=== PATIENT | female | born 1980 | race Caucasian/White ===

== ENCOUNTER 2017-04-04 08:25 | Emergency (ER) | payer MEDICAID ==
[~2017-04-04] VITALS: Wt 82.0 kg
[~2017-04-04 08:25] MED LIST: FER325 PO; PREN-46 PO
[2017-04-04] MEDS ORDERED: IBUP-1542 PO (08:46)
[2017-04-04] MEDS ORDERED: CIPR500T4 PO (08:46)
[2017-04-04] MEDS ORDERED: SULF1TAB31 PO (08:47)
--- NOTE | 2017-04-04 08:58 | ERD ---
ER Documentation Chief Complaint Date/Time DATE: 04/04/17 TIME: 08:51 Chief Complaint left ear pain HPI 36-year-old female complaining of left ear pain and inflammation 1 day. Patient stated the she is not hearing as well. Denies fever or chills. Denies trauma to the year. Denies swimming. Denies history of diabetes or other medical history. ROS All systems reviewed and are negative except as per history of present illness. Medications Home Meds Active Scripts Sulfamethoxazole/Trimethoprim* (Bactrim Ds* Tablet) 1 Each Tablet, 1 TAB PO BID , #14 TAB Prov:HORTENCIA URENA. FILM PROJECTOR OPERATOR 04/04/17 Ibuprofen* (Motrin*) 600 Mg Tab, 600 MG PO Q6H Y for PAIN AND OR ELEVATED TEMP, #30 TAB Prov:HORTENCIA URENA. FILM PROJECTOR OPERATOR 04/04/17 Ciprofloxacin Hcl* (Ciprofloxacin Hcl*) 500 Mg Tablet, 500 MG PO BID for 10 Days , TAB Prov:HORTENCIA URENA. FILM PROJECTOR OPERATOR 04/04/17 Reported Medications Ferrous Sulfate* (Ferrous Sulfate*) 325 Mg Tabec, 325 MG PO DAILY, TAB 01/17/15 Vit #108/Iron/Fa ( ONE TABLET) 1 Each Tablet, 1 EACH PO AM 01/17/15 Allergies Allergies: Coded Allergies: Penicillins (Verified Allergy, Intermediate, HIVES, 04/04/17) PMhx/Soc History of Surgery: Yes (hysterrectomy) Anesthesia Reaction: No Hx Neurological Disorder: No Hx Respiratory Disorders: No Hx Cardiac Disorders: No Hx Psychiatric Problems: No Hx Miscellaneous Medical Probl: No Hx Alcohol Use: No Hx Substance Use: No Hx Tobacco Use: No Smoking Status: Never smoker Physical Exam Vitals Vital Signs Date Time Temp Pulse Resp B/P Pulse Ox O2 Delivery O2 Flow Rate FiO2 04/04/17 08:27 98.0 71 18 132/75 99 Physical Exam General: Well-developed, well-nourished, conscious and coherent, in no distress Skin: Warm and dry without rash, good texture and turgor Head: Normocephalic without evidence of trauma Eyes: Sclera and conjunctivae normal; pupils equal, round, and reactive to light; extraocular movements are intact Ears: Canals are patent. Tympanic membranes are clear. Superior aspect of the left auricle and preauricular area erythematous, swollen, tender to palpation. Mastoid tenderness. Nose/Face: Without rhinorrhea Neck: Supple without meningismus or adenopathy. Carotids are equal. Trachea midline. No bruits or JVD Chest: Normal AP diameter. Good expansion without retractions. Nontender. Lungs are clear to auscultate bilaterally with good tidal volume Heart: Regular rate and rhythm. No murmur, rub, or gallops heard Extremities: Full range of motion. Good strength bilaterally. No clubbing, cyanosis, or edema. Peripheral pulses are intact. Sensation intact Neuro: Alert and oriented 4, GCS 15. Cranial nerves grossly intact. Motor and sensory exams nonfocal. Moves all extremities. Speech clear. Gait normal Results 24 hrs Current Medications Medications (Trade) Dose Ordered Sig/Macario Route PRN Reason Start Time Stop Time Status Last Admin Dose Admin Ibuprofen (Motrin) 600 mg ONCE ONCE PO 04/04/17 09:00 04/04/17 09:01 04/04/17 08:49 Procedures/MDM Well-appearing 36-year-old female presented to ED with cellulitis to the left ear. There is no sign of abscess at this time. I doubt mastoiditis. Patient is stable for outpatient management. I will prescribe Cipro and Bactrim DS. Ibuprofen given to the patient in the ED for pain relief. Patient appears well, stable for discharge and outpatient management. Medical decision making shared with patient and family. Education provided to patient and family. Patient and family expressed understanding of the plan. Medications on discharge: Ibuprofen, Cipro, Bactrim DS. Follow-up: Return to eating 2 days for recheck. The case was reviewed and discussed with Dr. Bauer, who agrees with the plan of care including labs, treatment, and advanced imaging as appropriate. Disclaimer: Inadvertent spelling and grammatical errors are likely due to EHR/ dictation software use and do not reflect on the overall quality of patient care. Also, please note that the electronic time recorded on this note does not necessarily reflect the actual time of the patient encounter. Departure Diagnosis: Primary Impression: Cellulitis of external ear Laterality: left Qualified Code: H60.12 - Cellulitis of left external ear Condition: Stable Patient Instructions: Cellulitis Ref[facility] Usted se robert hecho un examen mdico de control que le indica que no est en filemon condicin que requiera tratamiento urgente en el Departamento de Emergencia. Un estudio ms profundo y el tratamiento de coleman condicin pueden esperar sin ningn riesgo hasta que usted sea atendida/o en el consultorio de coleman mdico o filemon cl ciara. Es responsabilidad suya arreglar filemon sally para el seguimiento del mattie. MANEJO DE CONDICIONES NO URGENTES EN EL FUTURO 1) Si usted tiene un mdico de atencin primaria: Usted debera llamar a coleman mdico de atencin primaria antes de venir al departamento de emergencia. Despus de las horas de consultorio, coleman doctor o coleman asociado/a est disponible por telfono. El mdico o enfermero de becyk en el servicio telefnico puede asesorarle por deloris medio para atender el problema, o mattie contrario se puede programar filemon sally. 2) Si usted no tiene un mdico de atencin primaria: Llame al mdico o clnica de referencia que aparece abajo celia las horas de consultorio para hacer filemon sally para que le vean. CLINICAS: [facility] [phone] [facility] [phone] [place] [phone] [place] [id number] [phone] [place] [id number] [phone] [phone] [address] Additional Instructions: Regrese a estas instalaciones dentro de DOS DICKEY para un examen de seguimiento.Regrese antes si coleman condicin se empeora. HORTENCIA URENA NP Apr 04, 2017 08:58
[2017-04-04] MEDS ORDERED: IBUPROFEN 600 MG TAB PO ONE (09:00)
== END 2017-04-04 08:54 | disposition home or self-care (01) ==
LOC: FTE 08:25
DX: H60.12 Cellulitis of left external ear (principal)
CPT/HCPCS: Z7502; Z7610; 99284

== ENCOUNTER 2017-04-05 12:29 | Inpatient (IN) | payer MEDICAID ==
[~2017-04-05] VITALS: Ht 170.2 cm; Wt 80.7 kg
[~2017-04-05 12:29] MED LIST changes: +CIPR500T4 PO; +IBUP-1542 PO; +SULF1TAB31 PO
[2017-04-05] MEDS ORDERED: SOD CHLORIDE 0.9% 1,000 ML IV STA (15:28)
[2017-04-05] MEDS ORDERED: CLINDAMYCIN 600 MG/D5W (PMX) 50 ML IVPB SCH (15:30)
[2017-04-05 16:03] LABS: BASOPHIL # 0.1 10^3/ul (0.0-0.1); BASOPHILS % 0.3 % (0.0-2.0); EOSINOPHILS # 0.1 10^3/ul (0.0-0.5); EOSINOPHILS % 0.6 % (0.0-7.0); HEMATOCRIT 42.6 % (37.0-47.0); HEMOGLOBIN 13.2 g/dl (12.0-16.0); LYMPHOCYTES # 2.4 10^3/ul (0.8-2.9); LYMPHOCYTES % 13.7 % (15.0-51.0); MEAN CORPUSCULAR HEMOGLOBIN 27.8 pg (29.0-33.0); MEAN CORPUSCULAR VOLUME 89.9 fl (82.0-101.0); MONOCYTES % 5.8 % (0.0-11.0); NEUTROPHIL # 13.6 10^3/ul (1.6-7.5); NEUTROPHILS % 79.1 % (39.0-77.0); PLATELET COUNT 315 10^3/UL (140-415); RED BLOOD COUNT 4.74 10^6/ul (4.20-5.40); RED CELL DISTRIBUTION WIDTH 12.9 % (11.5-14.5); WHITE BLOOD COUNT 17.1 10^3/ul (4.8-10.8)
[2017-04-05 16:15] LABS: ADD UMIC YES; UR ASCORBIC ACID NEGATIVE (NEGATIVE); UR BACTERIA FEW /HPF (NONE SEEN); UR BILIRUBIN (Dip) NEGATIVE (NEGATIVE); UR BLOOD (Dip) NEGATIVE (NEGATIVE); UR BUDDING YEAST FEW /HPF (NONE SEEN); UR CLARITY SLIGHTLY CLOUDY (CLEAR); UR COLOR YELLOW (YELLOW); UR GLUCOSE (Dip) NEGATIVE (NEGATIVE); UR KETONES (Dip) NEGATIVE (NEGATIVE); UR LEUKOCYTE ESTERASE (Dip) 3+ Leu/ul (NEGATIVE); UR NITRITE (Dip) NEGATIVE (NEGATIVE); UR RBC 11 /HPF (0-5); UR SPECIFIC GRAVITY (Dip) 1.014 (1.003-1.030); UR SQUAMOUS EPITHELIAL CELL FEW /HPF (FEW); UR TOTAL PROTEIN (Dip) NEGATIVE (NEGATIVE); UR UROBILINOGEN (Dip) NEGATIVE (NEGATIVE)
[2017-04-05 16:20] LABS: ALBUMIN 4.5 g/dl (3.3-4.9); ALBUMIN/GLOBULIN RATIO 1.15; BILIRUBIN,INDIRECT 0.1 mg/dl (0-1.1); BILIRUBIN,TOTAL 0.1 mg/dl (0.2-1.3); CALCIUM 8.9 mg/dl (8.4-10.2); CREATININE 0.77 mg/dl (0.44-1.00); POTASSIUM 3.9 mmol/L (3.5-5.1); TOTAL PROTEIN 8.4 g/dl (6.1-8.1)
[2017-04-05] MEDS ORDERED: ONDANSETRON 4 MG INJ IV STA ×2 (16:21→18:07)
[2017-04-05] MEDS ORDERED: morphine 4 MG/ML VIAL IV STA ×2 (16:21→18:07)
[2017-04-05] MEDS ORDERED: SOD CHLORIDE 0.9% 100 ML ONE (16:41)
[2017-04-05] MEDS ORDERED: IOHEXOL 300MG/ML 150 ML BTL ONE (16:41)
--- NOTE | 2017-04-05 17:17 | RADRPT ---
PROCEDURE: CT soft tissue neck with contrast CLINICAL INDICATION: Left ear pain, redness TECHNIQUE: A CT of the soft tissues of the neck with contrast was performed on a multidetector CT s Cumed, with multiplanar reformats. 85 cc Omnipaque-300 intravenous contrast were administered. O ne or more of the following dose reduction techniques were used: Automated exposure control, adjustm ent in mA and / or kV according to patient size, use of iterative reconstructive technique. CTDI vo l = 10 mGy and DLP = 254 mGy-cm. COMPARISON: None available FINDINGS: Soft tissue swelling is identified in the left periauricular region with subcutaneous stranding whic h extends inferiorly over the lateral aspect of the left parotid gland - face. Imaged inferior aspe ct of the left pinna also appear swollen. Noted are small reactive left parotid nodes. No focal rim enhancing fluid collection is identified to suggest abscess. The pharynx, and larynx are unremarkabl e. The thyroid gland and rest of visceral space structures are unremarkable. The parapharyngeal an d retropharyngeal spaces are clear. The carotid spaces are unremarkable. There is a small, 2 -3 mm calculus in the right submandibular gland without associated dilated ducts seen. The imaged mastica tor spaces are symmetric. Imaged skull base appears intact. The perivertebral and posterior cervic al spaces are unremarkable. The imaged orbits are within normal limits. Oral cavity structures are unremarkable. Moderate right maxillary sinus mucous retention cyst is noted. Caries and periapical lucency at the right maxillary 1st premolar noted. Lung apices are clear.. IMPRESSION: 1. Findings compatible with cellulitis involving the left pinna, and adjacent periauricular region/ face. No abscess identified. 2. Small right submandibular gland calculus. 3. Dental disease described above. RPTAT: VV .Bryan Kinney MD, Date Time Electronically viewed and signed by .Bryan Kinney MD, MD on 04/05/2017 17:17 .O/
--- NOTE | 2017-04-05 17:56 | ERA ---
ER Documentation Chief Complaint Date/Time DATE: 04/05/17 TIME: 17:56 Chief Complaint l. ear pain and swelling HPI 36y/o female, presents to the ED c/o a four day h/o increasing pain and swelling to left ear. Symptoms began as a small spot on her ear. Seen in the ED on 04/04, treated with Cipro and Bactrim but symptoms worsening and spreading to left face. Denies headache, eye pain or visual changes. No odynophagia or dysphagia. No neck pain or swelling. No shortness of breath. Subjective fevers and chills. ROS All systems reviewed and are negative except as per history of present illness. Medications Home Meds Active Scripts Sulfamethoxazole/Trimethoprim* (Bactrim Ds* Tablet) 1 Each Tablet, 1 TAB PO BID , #14 TAB Prov:HORTENCIA URENA. BLADE BONER 04/04/17 Ciprofloxacin Hcl* (Ciprofloxacin Hcl*) 500 Mg Tablet, 500 MG PO BID for 10 Days , TAB Prov:HORTENCIA URENA. BLADE BONER 04/04/17 Discontinued Reported Medications Ferrous Sulfate* (Ferrous Sulfate*) 325 Mg Tabec, 325 MG PO DAILY, TAB 01/17/15 Vit #108/Iron/Fa ( ONE TABLET) 1 Each Tablet, 1 EACH PO AM 01/17/15 Discontinued Scripts Ibuprofen* (Motrin*) 600 Mg Tab, 600 MG PO Q6H Y for PAIN AND OR ELEVATED TEMP, #30 TAB Prov:HORTENCIA URENA. BLADE BONER 04/04/17 Allergies Allergies: Coded Allergies: Penicillins (Verified Allergy, Intermediate, HIVES, 04/05/17) PMhx/Soc Reviewed in chart. As per HPI. History of Surgery: Yes (hysterrectomy) Anesthesia Reaction: No Hx Neurological Disorder: No Hx Respiratory Disorders: No Hx Cardiac Disorders: No Hx Psychiatric Problems: No Hx Miscellaneous Medical Probl: No Hx Alcohol Use: No Hx Substance Use: No Hx Tobacco Use: No FmHx No diabetes Physical Exam Vitals Vital Signs Date Time Temp Pulse Resp B/P Pulse Ox O2 Delivery O2 Flow Rate FiO2 04/05/17 18:49 98.8 79 20 122/72 100 Room Air 04/05/17 12:42 99.4 74 20 126/77 100 Physical Exam Const: Alert, Mild distress Head: Atraumatic Eyes: Normal Conjunctiva. No periorbital swelling ENT: Erythema, swelling, tenderness and calor of the left pinna/helix extending to left face. No fluctuance or crepitus. No trismus. Pharynx clear. Neck: Full range of motion. No lymphadenopathy or tenderness. Resp: Clear to auscultation bilaterally Cardio: Regular rate and rhythm, no murmurs Abd: Soft, non tender, non distended. Normal bowel sounds Skin: No petechiae or rashes Back: No midline or flank tenderness Ext: No cyanosis, or edema Neur: Awake and alert Psych: Normal Mood and Affect Result Diagram: 04/09/1751604/09/17516 Results 24 hrs Laboratory Tests Test 04/05/17 15:48 White Blood Count 17.110^3/ul Red Blood Count 4.7410^6/ul Hemoglobin 13.2g/dl Hematocrit 42.6% Mean Corpuscular Volume 89.9fl Mean Corpuscular Hemoglobin 27.8pg Mean Corpuscular Hemoglobin Concent 31.0g/dl Red Cell Distribution Width 12.9% Platelet Count 61589^3/UL Mean Platelet Volume 9.0fl Neutrophils % 79.1% Lymphocytes % 13.7% Monocytes % 5.8% Eosinophils % 0.6% Basophils % 0.3% Nucleated Red Blood Cells % 0.0/100WBC Neutrophils # 13.610^3/ul Lymphocytes # 2.410^3/ul Monocytes # 1.010^3/ul Eosinophils # 0.110^3/ul Basophils # 0.110^3/ul Nucleated Red Blood Cells # 0.010^3/ul Urine Color YELLOW Urine Clarity SLIGHTLY CLOUDY Urine pH 5.0 Urine Specific [place] 1.014 Urine Ketones NEGATIVEmg/dL Urine Nitrite NEGATIVEmg/dL Urine Bilirubin NEGATIVEmg/dL Urine Urobilinogen NEGATIVEmg/dL Urine Leukocyte Esterase 3+Fatimah/ul Urine Microscopic RBC 11/HPF Urine Microscopic WBC 56/HPF Urine Squamous Epithelial Cells FEW/HPF Urine Bacteria FEW/HPF Urine Yeast (Budding) FEW/HPF Urine Hemoglobin NEGATIVEmg/dL Urine Glucose NEGATIVEmg/dL Urine Total Protein NEGATIVEmg/dl Sodium Level 140mmol/L Potassium Level 3.9mmol/L Chloride Level 104mmol/L Carbon Dioxide Level 25mmol/L Anion Gap 15 Blood Urea Nitrogen 10mg/dl Creatinine 0.77mg/dl Glucose Level 118mg/dl Calcium Level 8.9mg/dl Total Bilirubin 0.1mg/dl Direct Bilirubin 0.00mg/dl Indirect Bilirubin 0.1mg/dl Aspartate Amino Transf (AST/SGOT) 23IU/L Alanine Aminotransferase (ALT/SGPT) 27IU/L Alkaline Phosphatase 82IU/L Total Protein 8.4g/dl Albumin 4.5g/dl Globulin 3.90g/dl Albumin/Globulin Ratio 1.15 Lipase 43U/L Current Medications Medications (Trade) Dose Ordered Sig/Macario Route PRN Reason Start Time Stop Time Status Last Admin Dose Admin Sodium Chloride 1,000 ml @ 1,000 mls/hr Q1H STAT IV 04/05/17 15:28 04/05/17 16:27 DC 04/05/17 15:43 Clindamycin HCl/ Dextrose (Cleocin 600 Mg/ D5W (Pmx)) 50 ml @ 50 mls/hr ONCE IVPB 04/05/17 15:30 04/05/17 16:29 DC 04/05/17 15:57 Morphine Sulfate (morphine) 4 mg ONCE STAT IV 04/05/17 16:21 04/05/17 16:22 DC 04/05/17 16:25 Ondansetron HCl (Zofran Inj) 4 mg ONCE STAT IV 04/05/17 16:21 04/05/17 16:22 DC 04/05/17 16:26 IV Flush 10 ml 10 ml STK-MED ONCE .ROUTE 04/05/17 16:41 04/05/17 16:42 DC 04/05/17 16:57 Sodium Chloride (NS) 100 ml @ ud STK-MED ONCE .ROUTE 04/05/17 16:41 04/05/17 16:42 DC 04/05/17 16:58 Iohexol 150 ml 150 ml STK-MED ONCE .ROUTE 04/05/17 16:41 04/05/17 16:42 DC 04/05/17 16:58 Vancomycin HCl (Vancocin) 250 ml @ 125 mls/hr ONCE IVPB 04/05/17 18:00 04/05/17 19:59 DC 04/05/17 18:04 Morphine Sulfate (morphine) 4 mg ONCE STAT IV 04/05/17 18:07 04/05/17 18:08 DC 04/05/17 18:31 Ondansetron HCl (Zofran Inj) 4 mg ONCE STAT IV 04/05/17 18:07 04/05/17 18:08 DC 04/05/17 18:31 Hydromorphone HCl (Dilaudid) 1 mg ONCE STAT IV 04/05/17 20:19 04/05/17 20:20 DC 04/05/17 20:29 PROCEDURE: CT soft tissue neck with contrast CLINICAL INDICATION: Left ear pain, redness TECHNIQUE: A CT of the soft tissues of the neck with contrast was performed on a multidetector CT scanner, with multiplanar reformats. 85 cc Omnipaque-300 intravenous contrast were administered. One or more of the following dose reduction techniques were used: Automated exposure control, adjustment in mA and / or kV according to patient size, use of iterative reconstructive technique. CTDI vol = 10 mGy and DLP = 254 mGy-cm. COMPARISON: None available FINDINGS: Soft tissue swelling is identified in the left periauricular region with subcutaneous stranding which extends inferiorly over the lateral aspect of the left parotid gland - face. Imaged inferior aspect of the left pinna also appear swollen. Noted are small reactive left parotid nodes. No focal rim enhancing fluid collection is identified to suggest abscess. The pharynx, and larynx are unremarkable. The thyroid gland and rest of visceral space structures are unremarkable. The parapharyngeal and retropharyngeal spaces are clear. The carotid spaces are unremarkable. There is a small, 2 -3 mm calculus in the right submandibular gland without associated dilated ducts seen. The imaged canadian bacon tier spaces are symmetric. Imaged skull base appears intact. The perivertebral and posterior cervical spaces are unremarkable. The imaged orbits are within normal limits. Oral cavity structures are unremarkable. Moderate right maxillary sinus mucous retention cyst is noted. Caries and periapical lucency at the right maxillary 1st premolar noted. Lung apices are clear.. IMPRESSION: 1. Findings compatible with cellulitis involving the left pinna, and adjacent periauricular region/face. No abscess identified. 2. Small right submandibular gland calculus. 3. Dental disease described above. RPTAT: VV .Bryan Kinney MD, MD Date Time Electronically viewed and signed by .Bryan Kinney MD, on 04/05/2017 17:17 .O/ Procedures/MDM DOCUMENTS REVIEWED: ED nurse, prior ED, prior records MEDICAL DECISION MAKINy/o female, ambulatory to the ED c/o a four day h/o increasing pain and swelling to left ear. Presentation consistent with cellulitis of the left ear now extending to face despite oral antibiotics. Likely MRSA. IV Vancomycin initiated. CT negative for fluid collection ro abscess. No evidence of orbital, mastoid or intracranial extension. Admit to med /surg for IV antibiotics, ENT consult, further evaluation and management. Counseled patient and family regarding diagnosis, diagnostic results and plan for admission. CALLS/CONSULTS: Time 18:10, Dr. Krause. PATIENT CARE TRANSITIONED: Time: 19:00, Dr. Krause. Departure Diagnosis: Primary Impression: Cellulitis of left ear Additional Impression: Facial cellulitis Condition: Serious VIVEK HUNTER MD Apr 05, 2017 17:56
[2017-04-05] MEDS ORDERED: VANCOMYCIN 1 GM (PMX) 250 ML IVPB SCH (18:00)
[2017-04-05 18:49] VITALS: TEMP 98.8
[2017-04-05] MEDS ORDERED: HYDROmorphONE 1 MG/ML SYG IV STA (20:19)
[2017-04-05] MEDS ORDERED: HYDROCODONE/APAP (5/325) TAB PO PRN (20:30)
[2017-04-05] MEDS ORDERED: NACL 0.9% 3 ML SYG IV SCH (20:30)
[2017-04-05] MEDS ORDERED: ONDANSETRON 4 MG INJ IV PRN (20:30)
[2017-04-05] MEDS ORDERED: DOCUSATE SODIUM 100 MG CAP PO PRN (20:30)
[2017-04-05] MEDS ORDERED: BISACODYL (EC) 5 MG TAB PO PRN (20:30)
[2017-04-05 23:47] VITALS: BP 120/72; RESP 16
[2017-04-05] MEDS: FAMOTIDINE 20 MG TAB PO SCH (23:48)
[2017-04-05 23:50] VITALS: Ht 170.2 cm; Wt 80.7 kg
[2017-04-05] MEDS: HYDROmorphONE 1 MG/ML SYG IV PRN (23:56)
[2017-04-06 00:25] VITALS: BP 120/72; RESP 16
[2017-04-06 00:55] VITALS: PULSE 98
[2017-04-06 02:00] VITALS: BP 128/71; RESP 16
--- NOTE | 2017-04-06 05:37 | HP ---
Date/Time of Note Date/Time of Note DATE: 04/06/17 TIME: 05:23 Assessment/Plan VTE Prophylaxis VTE Prophylaxis Intervention: SCD's Lines/Catheters IV [facility]from [facility] [place] Assessment/Plan Chief Complaint/Hosp Course This is a 36 year female being admitted to the [facility] floor for: #1 left facial cellulitis: CT scan: Findings compatible with cellulitis involving the left pinna, and adjacent periauricular region/face. No abscess identified. Patient was initially started on vancomycin in the ED will continue vancomycin at this time. She failed outpatient therapy with Bactrim and ciprofloxacin patient does have a penicillin allergy. Will provide IV pain medication and once patient's swelling and symptoms improve could likely switch to an oral medication. #2 DVT GI prophylaxis: SCDs, acid ivan Further treatment strategy will be implemented as per the clinical course Problems: HPI/ROS Admit Date/Time Admit Date/Time Apr 05, 2017 at 20:24 Hx of Present Illness Chief complaint: Left facial swelling rash This is a 36-year-old female who comes in today with left facial swelling and fever for approximately 2 days. Patient states that recently her swelling started out on the top portion of the outer ear where she had a previous " lesion the rash then subsequently." Spread and she has started noticing swelling and redness and warmth and pain. Patient states that it is slightly painful for her to chew secondary to the swelling on the left side of the face. She states that the pain is 8 out of 10 and it is a pulsating type of pain. She states that she did have a fever of approximately 100. She failed outpatient therapy with Bactrim/Cipro. Allergies: Penicillin Medications: None ROS Const: As per HPI Eyes : No pain discharge or redness or change in visual acuity ENT: As per HPI Respiratory: No shortness of breath, cough, sputum, wheezing, or pleuritic pain Cardiovascular: No chest pain, palpitation, PND, or edema GI : no change in appetite, abdominal pain, nausea, vomiting, diarrhea, constipation, or change in the color his stool Genitourinary: No dysuria, hematuria, flank pain , discharge or CVA tenderness Musculoskeletal: No joint pain, back pain, neck pain, restricted range of motion in neck or joints Skin: As per HPI Neuro: No headache, dizziness, syncope, seizure, focal weakness Endocrine: No polyuria, polydipsia, temperature intolerance Psych: No hallucination, depression, anxiety or suicidal ideation PMH/Family/Social Past Medical History Medical History: no pertinent history Past Surgical History Ear abscess drainage of the left ear as a kid Family History Significant Family History: no pertinent family hx Social History Smoking Status: Never smoker Drug Use: none Exam/Review of Systems Vital Signs Vitals Vital Signs Date Time Temp Pulse Resp B/P Pulse Ox O2 Delivery O2 Flow Rate FiO2 04/06/17 02:00 99.8 97 16 128/71 100 04/05/17 22:48 Room Air Intake and Output 04/05/17 04/05/17 04/06/17 15:00 23:00 07:00 Intake Total 1050 ml 250 ml Balance 1050 ml 250 ml Exam Exam General: Patient is a well-developed female lying in bed in mild distress from pain HEENT: Significant swelling noted of the left ear/pinna as well as the wenceslao- auricular areas, erythema, mild tenderness to touch, pupils equally and reactive to light bilaterally. Neck: Supple with full range of motion. No rigidity or meningismus, no stridor noted Chest: Nontender Lungs: Clear to auscultation bilaterally no crackles rales or wheezing, Heart: Normal S1-S2, Regular rhythm and rate. No murmur, S3, or S4 Abdomen: Soft , nontender, nondistended , bowel sounds are present. No guarding no rebound tenderness , No masses or organomegaly. No costovertebral temporal angle mass Extremities: Normal to inspection, no edema no cyanosis Neurologic: Normal mental status, speech normal, cranial nerves II through XII are intact, motor and sensory are intact, no focal weakness Skin: Left ear and periauricular area erythema and swelling and redness and warmth. There is small closed lesion at the area of the pinna near the tragus of the ear which could be the possible entry point for her current infection, this was the area that she had treated in the past. Additional Comments PROCEDURE: CT soft tissue neck with contrast CLINICAL INDICATION: Left ear pain, redness TECHNIQUE: A CT of the soft tissues of the neck with contrast was performed on a multidetector CT scanner, with multiplanar reformats. 85 cc Omnipaque-300 intravenous contrast were administered. One or more of the following dose reduction techniques were used: Automated exposure control, adjustment in mA and / or kV according to patient size, use of iterative reconstructive technique. CTDI vol = 10 mGy and DLP = 254 mGy-cm. COMPARISON: None available FINDINGS: Soft tissue swelling is identified in the left periauricular region with subcutaneous stranding which extends inferiorly over the lateral aspect of the left parotid gland - face. Imaged inferior aspect of the left pinna also appear swollen. Noted are small reactive left parotid nodes. No focal rim enhancing fluid collection is identified to suggest abscess. The pharynx, and larynx are unremarkable. The thyroid gland and rest of visceral space structures are unremarkable. The parapharyngeal and retropharyngeal spaces are clear. The carotid spaces are unremarkable. There is a small, 2 -3 mm calculus in the right submandibular gland without associated dilated ducts seen. The imaged law office manager spaces are symmetric. Imaged skull base appears intact. The perivertebral and posterior cervical spaces are unremarkable. The imaged orbits are within normal limits. Oral cavity structures are unremarkable. Moderate right maxillary sinus mucous retention cyst is noted. Caries and periapical lucency at the right maxillary 1st premolar noted. Lung apices are clear.. IMPRESSION: 1. Findings compatible with cellulitis involving the left pinna, and adjacent periauricular region/face. No abscess identified. 2. Small right submandibular gland calculus. 3. Dental disease described above. RPTAT: VV .Bryan Kinney MD, MD Date Time Electronically viewed and signed by .Bryan Kinney MD, MD on 04/05/2017 17:17 .O/ CC: DOLORES WARREN PA-C Labs Result Diagram: 04/05/17 1548 04/05/17 1548 Medications Medications Current Medications Ondansetron HCl (Zofran Inj) 4 mg Q6H PRN IV NAUSEA AND/OR VOMITING; Start 04/05/17 at 20:30 Acetaminophen (Tylenol Tab) 650 mg Q6H PRN PO PAIN LEVEL 1-3 OR FEVER; Start 04/05/17 at 20:30 Docusate Sodium (Colace) 100 mg Q12H PRN PO CONSTIPATION; Start 04/05/17 at 20: 30 Bisacodyl (Dulcolax) 5 mg DAILY PRN PO CONSTIPATION; Start 04/05/17 at 20:30 Famotidine (Pepcid) 20 mg Q12 PO Last administered on 04/05/17 23:48; Admin Dose 20 MG; Start 04/05/17 at 21:00 Hydromorphone HCl (Dilaudid) 1 mg Q4H PRN IV PAIN Last administered on 23:56; Admin Dose 1 MG; Start 04/05/17 at 20:30 HAMIDA CHANG Apr 06, 2017 05:33
[2017-04-06 06:14] LABS: BASOPHIL # 0.1 10^3/ul (0.0-0.1); BASOPHILS % 0.3 % (0.0-2.0); EOSINOPHILS % 0.2 % (0.0-7.0); HEMATOCRIT 39.4 % (37.0-47.0); HEMOGLOBIN 12.2 g/dl (12.0-16.0); LYMPHOCYTES # 1.8 10^3/ul (0.8-2.9); LYMPHOCYTES % 11.6 % (15.0-51.0); MEAN CORPUSCULAR HEMOGLOBIN 27.9 pg (29.0-33.0); MEAN PLATELET VOLUME 9.2 fl (7.4-10.4); MONOCYTE # 1.2 10^3/ul (0.3-0.9); MONOCYTES % 7.6 % (0.0-11.0); NEUTROPHIL # 12.3 10^3/ul (1.6-7.5); NEUTROPHILS % 79.9 % (39.0-77.0); PLATELET COUNT 311 10^3/UL (140-415); RED BLOOD COUNT 4.38 10^6/ul (4.20-5.40); RED CELL DISTRIBUTION WIDTH 13.1 % (11.5-14.5); WHITE BLOOD COUNT 15.4 10^3/ul (4.8-10.8)
[2017-04-06] MEDS: HYDROmorphONE 1 MG/ML SYG IV PRN ×3 (06:38→20:29)
[2017-04-06 07:00] LABS: ALBUMIN 4.1 g/dl (3.3-4.9); ALBUMIN/GLOBULIN RATIO 1.2; BILIRUBIN,INDIRECT 0.2 mg/dl (0-1.1); BILIRUBIN,TOTAL 0.2 mg/dl (0.2-1.3); CALCIUM 8.9 mg/dl (8.4-10.2); CHOL/HDL RATIO 3.3 RATIO; CREATININE 0.72 mg/dl (0.44-1.00); MAGNESIUM 1.9 mg/dl (1.7-2.5); POTASSIUM 4.4 mmol/L (3.5-5.1); TOTAL PROTEIN 7.5 g/dl (6.1-8.1)
[2017-04-06 07:30] VITALS: BP 117/58; RESP 18
[2017-04-06] MEDS: FAMOTIDINE 20 MG TAB PO SCH ×2 (08:00→20:29)
[2017-04-06 14:12] VITALS: BP 107/61; RESP 22
[2017-04-06] MEDS ORDERED: VANCOMYCIN IV PER PHARMACY XX SCH (15:00)
--- NOTE | 2017-04-06 15:20 | PN ---
Date/Time of Note Date/Time of Note DATE: 04/06/17 TIME: 15:13 Assessment/Plan VTE Prophylaxis VTE Prophylaxis Intervention: ambulation Lines/Catheters IV Catheter Type (from Nrsg): Saline Lock Assessment/Plan Assessment/Plan 1. Cellulitis of left helix/pinna - ENT consulted and appreciate recommendations. Spoke with Dr. Cook and will see patient in the am - Continue on Vancomycin and added Clindamycin given patients allergies to PCN. She failed outpatient tx with Bactrim and cipro - Pain control 2. +UA - asymptomatic - Will continue to monitor - No treatment indicated at this time 3. Leukocytosis secondary to #1 - improving on IV antibiotics Subjective 24 Hr Interval Summary Free Text/Dictation Patient still experiencing discomfort in left ear. No drainage or discharge since admission. Denies any fevers, chills, nausea, vomiting, hearing issues, dizziness, or headache. Exam/Review of Systems Vital Signs Vitals Vital Signs Date Time Temp Pulse Resp B/P Pulse Ox O2 Delivery O2 Flow Rate FiO2 04/06/17 14:12 98.4 91 22 107/61 97 04/05/17 22:48 Room Air Intake and Output 04/05/17 04/05/17 04/06/17 15:00 23:00 07:00 Intake Total 1050 ml 990 ml Output Total 600 ml Balance 1050 ml 390 ml Exam General: Mild distress secondary to pain. HEENT: Pupils equally and reactive to light bilaterally. Neck: Supple with full range of motion. Lungs: Clear to auscultation bilaterally no crackles rales or wheezing, Heart: Normal S1-S2, Regular rhythm and rate. No murmur, S3, or S4 Abdomen: Soft , nontender, nondistended , bowel sounds are present. No guarding no rebound tenderness , No masses or organomegaly. Extremities: Normal to inspection, no edema no cyanosis Neurologic: Normal mental status, speech normal, cranial nerves II through XII are intact, motor and sensory are intact, no focal weakness Skin: Swelling left helix/pinna as well as erythema periauricular area. Tenderness to touch and scab medial aspect of helix appreciated. Results Result Diagram: 04/06/17 0520 04/06/17 0520 Results 24 hrs Laboratory Tests Test 04/05/17 15:48 04/06/17 05:20 White Blood Count 17.1 #H 15.4 H Red Blood Count 4.74 # 4.38 Hemoglobin 13.2 # 12.2 Hematocrit 42.6 # 39.4 Mean Corpuscular Volume 89.9 90.0 Mean Corpuscular Hemoglobin 27.8 L 27.9 L Mean Corpuscular Hemoglobin Concent 31.0 L 31.0 L Red Cell Distribution Width 12.9 13.1 Platelet Count 315 311 Mean Platelet Volume 9.0 # 9.2 Neutrophils % 79.1 H 79.9 H Lymphocytes % 13.7 L 11.6 L Monocytes % 5.8 7.6 Eosinophils % 0.6 0.2 Basophils % 0.3 0.3 Nucleated Red Blood Cells % 0.0 0.0 Neutrophils # 13.6 H 12.3 H Lymphocytes # 2.4 1.8 Monocytes # 1.0 H 1.2 H Eosinophils # 0.1 0.0 Basophils # 0.1 0.1 Nucleated Red Blood Cells # 0.0 0.0 Urine Color YELLOW Urine Clarity SLIGHTLY CLOUDY A Urine pH 5.0 Urine Specific [place] 1.014 Urine Ketones NEGATIVE Urine Nitrite NEGATIVE Urine Bilirubin NEGATIVE Urine Urobilinogen NEGATIVE Urine Leukocyte Esterase 3+ H Urine Microscopic RBC 11 H Urine Microscopic WBC 56 H Urine Squamous Epithelial Cells FEW Urine Bacteria FEW A Urine Yeast (Budding) FEW A Urine Hemoglobin NEGATIVE Urine Glucose NEGATIVE Urine Total Protein NEGATIVE Sodium Level 140 136 Potassium Level 3.9 4.4 Chloride Level 104 102 Carbon Dioxide Level 25 28 Anion Gap 15 10 # Blood Urea Nitrogen 10 8 Creatinine 0.77 0.72 Glucose Level 118 100 Calcium Level 8.9 8.9 Total Bilirubin 0.1 L 0.2 Direct Bilirubin 0.00 0.00 Indirect Bilirubin 0.1 0.2 Aspartate Amino Transf (AST/SGOT) 23 17 Alanine Aminotransferase (ALT/SGPT) 27 27 Alkaline Phosphatase 82 70 Total Protein 8.4 H 7.5 Albumin 4.5 4.1 Globulin 3.90 H 3.40 H Albumin/Globulin Ratio 1.15 1.20 Lipase 43 Hemoglobin A1c 5.6 Magnesium Level 1.9 Triglycerides Level 100 Cholesterol Level 172 LDL Cholesterol, Calculated 100 HDL Cholesterol 52 Cholesterol/HDL Ratio 3.3 Medications Medications Current Medications Ondansetron HCl (Zofran Inj) 4 mg Q6H PRN IV NAUSEA AND/OR VOMITING; Start 04/05/17 at 20:30 Acetaminophen (Tylenol Tab) 650 mg Q6H PRN PO PAIN LEVEL 1-3 OR FEVER; Start 04/05/17 at 20:30 Docusate Sodium (Colace) 100 mg Q12H PRN PO CONSTIPATION; Start 04/05/17 at 20: 30 Bisacodyl (Dulcolax) 5 mg DAILY PRN PO CONSTIPATION; Start 04/05/17 at 20:30 Famotidine (Pepcid) 20 mg Q12 PO Last administered on 04/06/17 08:00; Admin Dose 20 MG; Start 04/05/17 at 21:00 Hydromorphone HCl 1 mg 1 mg Q4H PRN IV PAIN Last administered on 04/06/17 11: 48; Admin Dose 1 MG; Start 04/05/17 at 20:30 Clindamycin HCl/ Dextrose (Cleocin 600 Mg/ D5W (Pmx)) 50 ml @ 50 mls/hr Q6 IVPB ; Start 04/06/17 at 18:00 Lactobacillus Acidophilus/ Rhamnosus 1 cap 1 cap BID PO ; Start 04/06/17 at 21: 00 Vancomycin HCl (Vancocin) 250 ml @ 125 mls/hr Q8H IVPB ; Start 04/06/17 at 15: 00 DORIS JJ MD Apr 06, 2017 15:20
[2017-04-06] MEDS: VANCOMYCIN 1 GM in NS 250 ML IVPB SCH ×2 (15:49→22:36)
[2017-04-06] MEDS: CLINDAMYCIN 600 MG/D5W (PMX) 50 ML IVPB SCH (17:52)
[2017-04-06 20:19] VITALS: BP 122/74; RESP 18
[2017-04-06] MEDS: LACTOBACILLUS RHAMNOSUS CAP PO SCH (20:29)
[2017-04-07] MEDS: CLINDAMYCIN 600 MG/D5W (PMX) 50 ML IVPB SCH ×5 (01:04→23:08)
[2017-04-07 02:00] VITALS: BP 117/67; RESP 18
[2017-04-07] MEDS: HYDROmorphONE 1 MG/ML SYG IV PRN ×2 (05:35→09:11)
[2017-04-07 06:12] LABS: BASOPHILS % 0.3 % (0.0-2.0); EOSINOPHILS # 0.1 10^3/ul (0.0-0.5); EOSINOPHILS % 0.4 % (0.0-7.0); HEMATOCRIT 38.6 % (37.0-47.0); HEMOGLOBIN 12.3 g/dl (12.0-16.0); LYMPHOCYTES # 1.6 10^3/ul (0.8-2.9); LYMPHOCYTES % 11.9 % (15.0-51.0); MEAN CORPUSCULAR HEMOGLOBIN 28.4 pg (29.0-33.0); MEAN CORPUSCULAR HGB CONC 31.9 g/dl (32.0-37.0); MEAN CORPUSCULAR VOLUME 89.1 fl (82.0-101.0); MONOCYTE # 0.9 10^3/ul (0.3-0.9); MONOCYTES % 6.2 % (0.0-11.0); NEUTROPHIL # 11.1 10^3/ul (1.6-7.5); NEUTROPHILS % 80.8 % (39.0-77.0); PLATELET COUNT 323 10^3/UL (140-415); RED BLOOD COUNT 4.33 10^6/ul (4.20-5.40); RED CELL DISTRIBUTION WIDTH 12.9 % (11.5-14.5); WHITE BLOOD COUNT 13.8 10^3/ul (4.8-10.8)
[2017-04-07 07:01] LABS: CALCIUM 8.9 mg/dl (8.4-10.2); CREATININE 0.69 mg/dl (0.44-1.00); PHOSPHORUS 2.7 mg/dl (2.5-4.9); POTASSIUM 4.5 mmol/L (3.5-5.1)
[2017-04-07] MEDS: VANCOMYCIN 1 GM in NS 250 ML IVPB SCH ×2 (07:26→16:08)
[2017-04-07 07:46] VITALS: BP 102/57; RESP 14
[2017-04-07] MEDS: FAMOTIDINE 20 MG TAB PO SCH ×2 (08:21→20:38)
[2017-04-07] MEDS: LACTOBACILLUS RHAMNOSUS CAP PO SCH ×2 (08:22→20:38)
[2017-04-07 14:34] VITALS: BP 109/64; RESP 16
--- NOTE | 2017-04-07 15:38 | PN ---
Date/Time of Note Date/Time of Note DATE: 04/07/17 TIME: 15:38 Assessment/Plan VTE Prophylaxis VTE Prophylaxis Intervention: SCD's Lines/Catheters IV Catheter Type (from Nrsg): Peripheral IV Assessment/Plan Assessment/Plan 1. Cellulitis of left helix/pinna - ENT consult appreciated and patient feeling relief after procedure performed. Per patient, she was told to follow up in 2 months - Continue on Vancomycin and added Clindamycin given patients allergies to PCN. She failed outpatient tx with Bactrim and cipro - Pain control - WBC improving and patient remains afebrile. if continues to improve will deescalate antibiotics tmrw 2. +UA - asymptomatic - Will continue to monitor - No treatment indicated at this time 3. Leukocytosis secondary to #1 - improving on IV antibiotics 4. Disposition - once stable will switch to PO Clindamycin and d/c home in the next 24-48 hours Subjective 24 Hr Interval Summary Free Text/Dictation Patient states she is feeling more relief in left ear after procedure performed this am. No new complaints and no acute overnight events. Exam/Review of Systems Vital Signs Vitals Vital Signs Date Time Temp Pulse Resp B/P Pulse Ox O2 Delivery O2 Flow Rate FiO2 04/07/17 14:34 98.3 86 16 109/64 100 04/05/17 22:48 Room Air Intake and Output 04/06/17 04/06/17 04/07/17 15:00 23:00 07:00 Intake Total 1300 ml 300 ml Balance 1300 ml 300 ml Exam General: Mild distress secondary to pain. HEENT: Pupils equally and reactive to light bilaterally. Neck: Supple with full range of motion. Lungs: Clear to auscultation bilaterally no crackles rales or wheezing, Heart: Normal S1-S2, Regular rhythm and rate. No murmur, S3, or S4 Abdomen: Soft , nontender, nondistended , bowel sounds are present. No guarding no rebound tenderness , No masses or organomegaly. Extremities: Normal to inspection, no edema no cyanosis Neurologic: Normal mental status, speech normal, cranial nerves II through XII are intact, motor and sensory are intact, no focal weakness Skin: Swelling left helix/pinna with packing in place at helix. Tenderness to touch. Results Result Diagram: 04/07/1752304/07/17523 Results 24 hrs Laboratory Tests Test 04/07/17 05:24 04/07/17 14:00 White Blood Count 13.8 H Red Blood Count 4.33 Hemoglobin 12.3 Hematocrit 38.6 Mean Corpuscular Volume 89.1 Mean Corpuscular Hemoglobin 28.4 L Mean Corpuscular Hemoglobin Concent 31.9 L Red Cell Distribution Width 12.9 Platelet Count 323 Mean Platelet Volume 9.0 Neutrophils % 80.8 H Lymphocytes % 11.9 L Monocytes % 6.2 Eosinophils % 0.4 Basophils % 0.3 Nucleated Red Blood Cells % 0.0 Neutrophils # 11.1 H Lymphocytes # 1.6 Monocytes # 0.9 Eosinophils # 0.1 Basophils # 0.0 Nucleated Red Blood Cells # 0.0 Sodium Level 137 Potassium Level 4.5 Chloride Level 103 Carbon Dioxide Level 27 Anion Gap 12 Blood Urea Nitrogen 9 Creatinine 0.69 Glucose Level 116 Calcium Level 8.9 Phosphorus Level 2.7 Magnesium Level 2.0 Albumin 4.0 Vancomycin Level Trough 7.2 L Medications Medications Current Medications Ondansetron HCl (Zofran Inj) 4 mg Q6H PRN IV NAUSEA AND/OR VOMITING; Start 04/05/17 at 20:30 Acetaminophen (Tylenol Tab) 650 mg Q6H PRN PO PAIN LEVEL 1-3 OR FEVER; Start 04/05/17 at 20:30 Docusate Sodium (Colace) 100 mg Q12H PRN PO CONSTIPATION; Start 04/05/17 at 20: 30 Bisacodyl (Dulcolax) 5 mg DAILY PRN PO CONSTIPATION; Start 04/05/17 at 20:30 Famotidine (Pepcid) 20 mg Q12 PO Last administered on 04/07/17 08:21; Admin Dose 20 MG; Start 04/05/17 at 21:00 Hydromorphone HCl 1 mg 1 mg Q4H PRN IV PAIN Last administered on 04/07/17 09: 11; Admin Dose 1 MG; Start 04/05/17 at 20:30 Clindamycin HCl/ Dextrose (Cleocin 600 Mg/ D5W (Pmx)) 50 ml @ 50 mls/hr Q6 IVPB Last administered on 04/07/17 12:04; Admin Dose 50 MLS/HR; Start 04/06/17 at 18:00 Lactobacillus Acidophilus/ Rhamnosus 1 cap 1 cap BID PO Last administered on 08:22; Admin Dose 1 CAP; Start 04/06/17 at 21:00 Vancomycin HCl (Vancocin) 250 ml @ 125 mls/hr Q8H IVPB Last administered on 07:26; Admin Dose 125 MLS/HR; Start 04/06/17 at 15:00 DORIS JJ MD Apr 07, 2017 15:38
[2017-04-07 19:49] VITALS: BP 120/69; RESP 20
[2017-04-08] MEDS: VANCOMYCIN 1.5 GM in SOD CHLORIDE 0.9% 250 ML IVPB SCH ×2 (00:34→07:59)
[2017-04-08 02:13] VITALS: BP 131/80; RESP 18
[2017-04-08 05:38] LABS: BASOPHILS % 0.3 % (0.0-2.0); EOSINOPHILS # 0.2 10^3/ul (0.0-0.5); EOSINOPHILS % 1.7 % (0.0-7.0); HEMATOCRIT 39.2 % (37.0-47.0); HEMOGLOBIN 12.6 g/dl (12.0-16.0); LYMPHOCYTES # 2.2 10^3/ul (0.8-2.9); LYMPHOCYTES % 23.8 % (15.0-51.0); MEAN CORPUSCULAR HEMOGLOBIN 28.4 pg (29.0-33.0); MEAN CORPUSCULAR HGB CONC 32.1 g/dl (32.0-37.0); MEAN CORPUSCULAR VOLUME 88.5 fl (82.0-101.0); MEAN PLATELET VOLUME 8.8 fl (7.4-10.4); MONOCYTE # 0.7 10^3/ul (0.3-0.9); MONOCYTES % 7.5 % (0.0-11.0); NEUTROPHIL # 6.1 10^3/ul (1.6-7.5); NEUTROPHILS % 66.5 % (39.0-77.0); PLATELET COUNT 355 10^3/UL (140-415); RED BLOOD COUNT 4.43 10^6/ul (4.20-5.40); RED CELL DISTRIBUTION WIDTH 12.7 % (11.5-14.5); WHITE BLOOD COUNT 9.2 10^3/ul (4.8-10.8)
[2017-04-08] MEDS: CLINDAMYCIN 600 MG/D5W (PMX) 50 ML IVPB SCH ×4 (05:43→23:27)
[2017-04-08 06:07] LABS: ALBUMIN 3.8 g/dl (3.3-4.9); CALCIUM 9.5 mg/dl (8.4-10.2); CREATININE 0.74 mg/dl (0.44-1.00); PHOSPHORUS 3.8 mg/dl (2.5-4.9); POTASSIUM 4.2 mmol/L (3.5-5.1)
[2017-04-08 07:46] VITALS: BP 115/70; RESP 17
[2017-04-08] MEDS: LACTOBACILLUS RHAMNOSUS CAP PO SCH ×2 (08:54→20:57)
[2017-04-08] MEDS: FAMOTIDINE 20 MG TAB PO SCH ×2 (08:54→20:57)
[2017-04-08 14:10] VITALS: BP 124/79; RESP 18
--- NOTE | 2017-04-08 15:57 | PN ---
Date/Time of Note Date/Time of Note DATE: 04/08/17 TIME: 15:48 Assessment/Plan VTE Prophylaxis VTE Prophylaxis Intervention: ambulation Lines/Catheters IV Catheter Type (from Nrs): Saline Lock Assessment/Plan Assessment/Plan 1. Cellulitis of left helix/pinna - ENT consult appreciated and patient feeling relief after procedure performed. Per patient, was told ENT would return today to change packing. Nurse placed call to ENT - Will order wound culture from pus draining from ear - Continue on Clindamycin and will d/c Vanc due to intolerance. She failed outpatient tx with Bactrim and cipro - Pain control - WBC improving and patient remains afebrile. if continues to improve will deescalate antibiotics tmrw 2. +UA - asymptomatic - Will continue to monitor - No treatment indicated at this time 3. Leukocytosis secondary to #1 - improving on IV antibiotics 4. Disposition - will await input from ENT prior to discharge Subjective 24 Hr Interval Summary Free Text/Dictation Patient states shes not experiencing any pain in the left ear but still has swelling. Wound packing has large scab/clot and was called by nurse later in the day that there is pus currently draining. No fevers but does have low grade temp of 99.1. Exam/Review of Systems Vital Signs Vitals Vital Signs Date Time Temp Pulse Resp B/P Pulse Ox O2 Delivery O2 Flow Rate FiO2 04/08/17 14:10 99.1 79 18 124/79 98 04/05/17 22:48 Room Air Intake and Output 04/07/17 04/07/17 04/08/17 15:00 23:00 07:00 Intake Total 50 ml 2240 ml 950 ml Balance 50 ml 2240 ml 950 ml Exam General: NAD, awake and alert HEENT: Pupils equally and reactive to light bilaterally. Packing in place left helix with clotted blood. no drainage appreciated and surrounding swelling present. Neck: Supple with full range of motion. Lungs: Clear to auscultation bilaterally no crackles rales or wheezing, Heart: Normal S1-S2, Regular rhythm and rate. No murmur, S3, or S4 Abdomen: Soft , nontender, nondistended , bowel sounds are present. No guarding no rebound tenderness , No masses or organomegaly. Extremities: Normal to inspection, no edema no cyanosis Neurologic: Normal mental status, speech normal, cranial nerves II through XII are intact, motor and sensory are intact, no focal weakness Results Result Diagram: 04/08/17 0515 04/08/17 0515 Results 24 hrs Laboratory Tests Test 04/08/17 05:15 White Blood Count 9.2 # Red Blood Count 4.43 Hemoglobin 12.6 Hematocrit 39.2 Mean Corpuscular Volume 88.5 Mean Corpuscular Hemoglobin 28.4 L Mean Corpuscular Hemoglobin Concent 32.1 Red Cell Distribution Width 12.7 Platelet Count 355 Mean Platelet Volume 8.8 Neutrophils % 66.5 Lymphocytes % 23.8 Monocytes % 7.5 Eosinophils % 1.7 Basophils % 0.3 Nucleated Red Blood Cells % 0.0 Neutrophils # 6.1 Lymphocytes # 2.2 Monocytes # 0.7 Eosinophils # 0.2 Basophils # 0.0 Nucleated Red Blood Cells # 0.0 Sodium Level 138 Potassium Level 4.2 Chloride Level 103 Carbon Dioxide Level 28 Anion Gap 11 Blood Urea Nitrogen 9 Creatinine 0.74 Glucose Level 100 Calcium Level 9.5 Phosphorus Level 3.8 Magnesium Level 2.0 Albumin 3.8 Medications Medications Current Medications Ondansetron HCl (Zofran Inj) 4 mg Q6H PRN IV NAUSEA AND/OR VOMITING; Start 04/05/17 at 20:30 Acetaminophen (Tylenol Tab) 650 mg Q6H PRN PO PAIN LEVEL 1-3 OR FEVER; Start 04/05/17 at 20:30 Docusate Sodium (Colace) 100 mg Q12H PRN PO CONSTIPATION; Start 04/05/17 at 20: 30 Bisacodyl (Dulcolax) 5 mg DAILY PRN PO CONSTIPATION; Start 04/05/17 at 20:30 Famotidine (Pepcid) 20 mg Q12 PO Last administered on 04/08/17 08:54; Admin Dose 20 MG; Start 04/05/17 at 21:00 Hydromorphone HCl 1 mg 1 mg Q4H PRN IV PAIN Last administered on 04/07/17 09: 11; Admin Dose 1 MG; Start 04/05/17 at 20:30 Clindamycin HCl/ Dextrose (Cleocin 600 Mg/ D5W (Pmx)) 50 ml @ 50 mls/hr Q6 IVPB Last administered on 04/08/17 14:22; Admin Dose 50 MLS/HR; Start 04/06/17 at 18:00 Lactobacillus Acidophilus/ Rhamnosus 1 cap 1 cap BID PO Last administered on 08:54; Admin Dose 1 CAP; Start 04/06/17 at 21:00 Vancomycin HCl/ Sodium Chloride (Vancocin/NS) 250 ml @ 83.333 mls/ hr Q8H IVPB Last administered on 04/08/17 07:59; Admin Dose 83.333 MLS/HR; Start at 00:00 Miscellaneous Information (*Rx Drug Level Order Reminder*) VANCOMYCIN TROUGH AT 2300 ONCE ONCE XX ; Start 04/08/17 at 23:00; Stop 04/08/17 at 23:01 DORIS JJ MD Apr 08, 2017 15:57
[2017-04-08] MEDS: ACETAMINOPHEN 325 MG TAB PO PRN (16:38)
[2017-04-08 19:41] VITALS: BP 106/65; RESP 16
[2017-04-09 02:00] VITALS: BP 122/76; PULSE 80; RESP 18
[2017-04-09] MEDS: CLINDAMYCIN 600 MG/D5W (PMX) 50 ML IVPB SCH (05:35)
[2017-04-09 05:59] LABS: BASOPHILS % 0.4 % (0.0-2.0); EOSINOPHILS # 0.2 10^3/ul (0.0-0.5); EOSINOPHILS % 2.5 % (0.0-7.0); HEMATOCRIT 40.7 % (37.0-47.0); HEMOGLOBIN 12.9 g/dl (12.0-16.0); LYMPHOCYTES # 2.2 10^3/ul (0.8-2.9); LYMPHOCYTES % 28.8 % (15.0-51.0); MEAN CORPUSCULAR HEMOGLOBIN 28.5 pg (29.0-33.0); MEAN CORPUSCULAR HGB CONC 31.7 g/dl (32.0-37.0); MEAN CORPUSCULAR VOLUME 89.8 fl (82.0-101.0); MEAN PLATELET VOLUME 8.8 fl (7.4-10.4); MONOCYTE # 0.6 10^3/ul (0.3-0.9); MONOCYTES % 7.5 % (0.0-11.0); NEUTROPHIL # 4.6 10^3/ul (1.6-7.5); NEUTROPHILS % 60.5 % (39.0-77.0); PLATELET COUNT 401 10^3/UL (140-415); RED BLOOD COUNT 4.53 10^6/ul (4.20-5.40); RED CELL DISTRIBUTION WIDTH 12.4 % (11.5-14.5); WHITE BLOOD COUNT 7.5 10^3/ul (4.8-10.8)
[2017-04-09 06:12] LABS: ALBUMIN 3.9 g/dl (3.3-4.9); CALCIUM 9.5 mg/dl (8.4-10.2); CREATININE 0.77 mg/dl (0.44-1.00); PHOSPHORUS 4.3 mg/dl (2.5-4.9); POTASSIUM 4.6 mmol/L (3.5-5.1)
--- NOTE | 2017-04-09 08:10 | PN ---
Date/Time of Note Date/Time of Note DATE: 04/09/17 TIME: 08:10 Assessment/Plan VTE Prophylaxis VTE Prophylaxis Intervention: ambulation Lines/Catheters IV [facility] Saline Lock Urinary Cath still in place: No Assessment/Plan Assessment/Plan 1. Cellulitis of left helix/pinna s/p I&D 04/07/17 and packing - ENT consult appreciated and packing removed yesterday 04/08/17 and sent for cultures - Given the fact patient failed 2 rounds of PO antibiotics, will await cultures in order to discharge on appropriate antibiotics. Currently on Clindamycin with no issues. 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 - She failed outpatient tx with Bactrim and cipro - Pain control - WBC normalized 2. +UA - asymptomatic - Will continue to monitor - No treatment indicated at this time 3. Leukocytosis secondary to #1 - resolved on IV antibiotics 4. Disposition - Await wound cultures in order to discharge on appropriate antibiotics given patient had 2 failed rounds of PO antibiotics prior to admission Subjective 24 Hr Interval Summary Free Text/Dictation Patient states shes feeling better and experiencing less pain and swelling in left ear. Still has drainage from ear after packing removed yesterday. Denies any fevers, chills, nausea, vomiting, dizziness, or headaches. Exam/Review of Systems Vital Signs Vitals Vital Signs Date Time Temp Pulse Resp B/P Pulse Ox O2 Delivery O2 Flow Rate FiO2 04/09/17 02:00 98.3 80 18 122/76 97 Room Air Intake and Output 04/08/17 04/08/17 04/09/17 15:00 23:00 07:00 Intake Total 300 ml 1300 ml 700 ml Balance 300 ml 1300 ml 700 ml Exam General: NAD, awake and alert HEENT: Pupils equally and reactive to light bilaterally. Swelling left ear improved, still sero sangenous drainage and purulent discharge on dressing. mild tenderness with palpation Neck: Supple with full range of motion. Lungs: Clear to auscultation bilaterally no crackles rales or wheezing, Heart: Normal S1-S2, Regular rhythm and rate. No murmur, S3, or S4 Abdomen: Soft , nontender, nondistended , bowel sounds are present. No guarding no rebound tenderness , No masses or organomegaly. Extremities: Normal to inspection, no edema no cyanosis Neurologic: Normal mental status, speech normal, cranial nerves II through XII are intact, motor and sensory are intact, no focal weakness Results Result Diagram: 04/09/1751604/09/17516 Results 24 hrs Laboratory Tests Test 04/09/17 05:17 White Blood Count 7.5 Red Blood Count 4.53 Hemoglobin 12.9 Hematocrit 40.7 Mean Corpuscular Volume 89.8 Mean Corpuscular Hemoglobin 28.5 L Mean Corpuscular Hemoglobin Concent 31.7 L Red Cell Distribution Width 12.4 Platelet Count 401 Mean Platelet Volume 8.8 Neutrophils % 60.5 Lymphocytes % 28.8 Monocytes % 7.5 Eosinophils % 2.5 Basophils % 0.4 Nucleated Red Blood Cells % 0.0 Neutrophils # 4.6 Lymphocytes # 2.2 Monocytes # 0.6 Eosinophils # 0.2 Basophils # 0.0 Nucleated Red Blood Cells # 0.0 Sodium Level 139 Potassium Level 4.6 Chloride Level 104 Carbon Dioxide Level 27 Anion Gap 13 Blood Urea Nitrogen 13 Creatinine 0.77 Glucose Level 97 Calcium Level 9.5 Phosphorus Level 4.3 Magnesium Level 2.0 Albumin 3.9 Medications Medications Current Medications Ondansetron HCl (Zofran Inj) 4 mg Q6H PRN IV NAUSEA AND/OR VOMITING; Start 04/05/17 at 20:30 Acetaminophen (Tylenol Tab) 650 mg Q6H PRN PO PAIN LEVEL 1-3 OR FEVER Last administered on 04/08/17 16:38; Admin Dose 650 MG; Start 04/05/17 at 20:30 Docusate Sodium (Colace) 100 mg Q12H PRN PO CONSTIPATION; Start 04/05/17 at 20: 30 Bisacodyl (Dulcolax) 5 mg DAILY PRN PO CONSTIPATION; Start 04/05/17 at 20:30 Famotidine (Pepcid) 20 mg Q12 PO Last administered on 04/08/17 20:57; Admin Dose 20 MG; Start 04/05/17 at 21:00 Hydromorphone HCl 1 mg 1 mg Q4H PRN IV PAIN Last administered on 04/07/17 09: 11; Admin Dose 1 MG; Start 04/05/17 at 20:30 Clindamycin HCl/ Dextrose (Cleocin 600 Mg/ D5W (Pmx)) 50 ml @ 50 mls/hr Q6 IVPB Last administered on 04/09/17 05:35; Admin Dose 50 MLS/HR; Start 04/06/17 at 18:00 Lactobacillus Acidophilus/ Rhamnosus (Culturelle) 1 cap BID PO Last administered on 04/08/17 20:57; Admin Dose 1 CAP; Start 04/06/17 at 21:00 DORIS JJ MD Apr 09, 2017 08:10
[2017-04-09] MEDS: FAMOTIDINE 20 MG TAB PO SCH ×2 (09:24→20:32)
[2017-04-09] MEDS: LACTOBACILLUS RHAMNOSUS CAP PO SCH ×2 (09:24→20:32)
[2017-04-09] MEDS ORDERED: DIPHENHYDRAMINE 25 MG CAP PO ONE (11:00)
[2017-04-09] MEDS: ACETAMINOPHEN 325 MG TAB PO PRN (11:21)
[2017-04-09] MEDS: CLINDAMYCIN 300 MG CAP PO SCH ×2 (12:20→17:34)
[2017-04-09 14:00] VITALS: BP 118/78; PULSE 75; RESP 18
--- NOTE | 2017-04-09 18:15 | SP ---
DATE OF PROCEDURE: 04/07/2017 PREOPERATIVE DIAGNOSIS: Infected left preauricular cyst. POSTOPERATIVE DIAGNOSIS: Infected left preauricular cyst. PROCEDURE PERFORMED: Incision and drainage of left preauricular cyst. ANESTHESIA: Local. DESCRIPTION OF PROCEDURE: After informed consent was obtained, the left ear was prepped and draped in usual sterile fashion, 1% lidocaine with epinephrine was injected into the site. A 15 blade was used to make an 8 mm incision over the punctum of the cyst. A curved Blanquita clamp was used to enter the abscess cavity. Pus was expressed from the wound. The wound was irrigated out with saline. Io doform gauze was placed into the abscess cavity. ESTIMATED BLOOD LOSS: Less than 5 mL. Patient tolerated the procedure well. PLAN: The patient can be discharged tomorrow. The gauze packing should be removed tomorrow prior t o discharge. She should have ENT followup in several months to plan to remove the preauricular cyst . Dictated By: ROSEMARY PAVON MD, [facility] Conf#: [id number] DID#: [id number]
[2017-04-09 19:25] VITALS: BP 120/70; RESP 18
[2017-04-10] MEDS: CLINDAMYCIN 300 MG CAP PO SCH ×5 (00:30→23:37)
[2017-04-10 02:00] VITALS: BP 128/79; RESP 18
[2017-04-10 05:50] LABS: BASOPHIL # 0.1 10^3/ul (0.0-0.1); BASOPHILS % 0.7 % (0.0-2.0); EOSINOPHILS # 0.2 10^3/ul (0.0-0.5); EOSINOPHILS % 2.8 % (0.0-7.0); HEMATOCRIT 40.1 % (37.0-47.0); HEMOGLOBIN 12.8 g/dl (12.0-16.0); LYMPHOCYTES # 2.1 10^3/ul (0.8-2.9); LYMPHOCYTES % 28.6 % (15.0-51.0); MEAN CORPUSCULAR HEMOGLOBIN 28.3 pg (29.0-33.0); MEAN CORPUSCULAR HGB CONC 31.9 g/dl (32.0-37.0); MEAN CORPUSCULAR VOLUME 88.7 fl (82.0-101.0); MEAN PLATELET VOLUME 8.6 fl (7.4-10.4); MONOCYTE # 0.6 10^3/ul (0.3-0.9); MONOCYTES % 8.6 % (0.0-11.0); NEUTROPHIL # 4.4 10^3/ul (1.6-7.5); NEUTROPHILS % 58.8 % (39.0-77.0); PLATELET COUNT 416 10^3/UL (140-415); RED BLOOD COUNT 4.52 10^6/ul (4.20-5.40); RED CELL DISTRIBUTION WIDTH 12.2 % (11.5-14.5); WHITE BLOOD COUNT 7.5 10^3/ul (4.8-10.8)
[2017-04-10 06:23] LABS: ALBUMIN 3.9 g/dl (3.3-4.9); CALCIUM 9.6 mg/dl (8.4-10.2); CREATININE 0.81 mg/dl (0.44-1.00); MAGNESIUM 1.8 mg/dl (1.7-2.5); PHOSPHORUS 4.9 mg/dl (2.5-4.9); POTASSIUM 4.4 mmol/L (3.5-5.1)
[2017-04-10] MEDS: LACTOBACILLUS RHAMNOSUS CAP PO SCH ×2 (08:42→20:28)
[2017-04-10] MEDS: FAMOTIDINE 20 MG TAB PO SCH ×2 (08:42→20:28)
[2017-04-10 08:46] VITALS: BP 122/70; RESP 16
--- NOTE | 2017-04-10 10:07 | PN ---
Date/Time of Note Date/Time of Note DATE: 04/10/17 TIME: 10:05 Assessment/Plan VTE Prophylaxis VTE Prophylaxis Intervention: SCD's Lines/Catheters IV C[facility] Type [facility]from [facility] Saline Lock Urinary Cath still in place: No Assessment/Plan Chief Complaint/Hosp Course Assessment/Plan 1. Cellulitis of left helix/pinna s/p I&D 04/07/17 and packing - ENT consult appreciated and packing removed yesterday 04/08/17 and sent for cultures - Given the fact patient failed 2 rounds of PO antibiotics, will await cultures in order to discharge on appropriate antibiotics. Currently on Clindamycin with no issues. 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 - She failed outpatient tx with Bactrim and cipro - Pain control - WBC normalized 2. +UA - asymptomatic - Will continue to monitor - No treatment indicated at this time 3. Leukocytosis secondary to #1 - resolved on IV antibiotics 4. Disposition - Await wound cultures in order to discharge on appropriate antibiotics given patient had 2 failed rounds of PO antibiotics prior to admission Problems: Subjective 24 Hr Interval Summary Free Text/Dictation no acute complaints, minimal ear pain Exam/Review of Systems Vital Signs Vitals Vital Signs Date Time Temp Pulse Resp B/P Pulse Ox O2 Delivery O2 Flow Rate FiO2 04/10/17 08:46 98.3 80 16 122/70 97 04/09/17 14:00 Room Air Intake and Output 04/09/17 04/09/17 04/10/17 15:00 23:00 07:00 Intake Total 1440 ml 400 ml Balance 1440 ml 400 ml Exam General: NAD, awake and alert HEENT: Pupils equally and reactive to light bilaterally. Swelling left ear improved, minimal discharge on dressing. mild tenderness with palpation Neck: Supple with full range of motion. Lungs: Clear to auscultation bilaterally no crackles rales or wheezing, Heart: Normal S1-S2, Regular rhythm and rate. No murmur, S3, or S4 Abdomen: Soft , nontender, nondistended , bowel sounds are present. No guarding no rebound tenderness , No masses or organomegaly. Extremities: Normal to inspection, no edema no cyanosis Neurologic: Normal mental status, speech normal, cranial nerves II through XII are intact, motor and sensory are intact, no focal weakness Results Result Diagram: 10/9/17 0448 04/10/17 0448 Results 24 hrs Laboratory Tests Test 04/10/17 04:48 White Blood Count 7.5 Red Blood Count 4.52 Hemoglobin 12.8 Hematocrit 40.1 Mean Corpuscular Volume 88.7 Mean Corpuscular Hemoglobin 28.3 L Mean Corpuscular Hemoglobin Concent 31.9 L Red Cell Distribution Width 12.2 Platelet Count 416 H Mean Platelet Volume 8.6 Neutrophils % 58.8 Lymphocytes % 28.6 Monocytes % 8.6 Eosinophils % 2.8 Basophils % 0.7 Nucleated Red Blood Cells % 0.0 Neutrophils # 4.4 Lymphocytes # 2.1 Monocytes # 0.6 Eosinophils # 0.2 Basophils # 0.1 Nucleated Red Blood Cells # 0.0 Sodium Level 138 Potassium Level 4.4 Chloride Level 102 Carbon Dioxide Level 29 Anion Gap 11 Blood Urea Nitrogen 14 Creatinine 0.81 Glucose Level 95 Calcium Level 9.6 Phosphorus Level 4.9 Magnesium Level 1.8 Albumin 3.9 Medications Medications Current Medications Ondansetron HCl (Zofran Inj) 4 mg Q6H PRN IV NAUSEA AND/OR VOMITING; Start 04/05/17 at 20:30 Acetaminophen (Tylenol Tab) 650 mg Q6H PRN PO PAIN LEVEL 1-3 OR FEVER Last administered on 04/09/17 11:21; Admin Dose 650 MG; Start 04/05/17 at 20:30 Docusate Sodium (Colace) 100 mg Q12H PRN PO CONSTIPATION; Start 04/05/17 at 20: 30 Bisacodyl (Dulcolax) 5 mg DAILY PRN PO CONSTIPATION; Start 04/05/17 at 20:30 Famotidine (Pepcid) 20 mg Q12 PO Last administered on 04/10/17 08:42; Admin Dose 20 MG; Start 04/05/17 at 21:00 Hydromorphone HCl (Dilaudid) 1 mg Q4H PRN IV PAIN Last administered on 09:11; Admin Dose 1 MG; Start 04/05/17 at 20:30 Lactobacillus Acidophilus/ Rhamnosus (Culturelle) 1 cap BID PO Last administered on 04/10/17 08:42; Admin Dose 1 CAP; Start 04/06/17 at 21:00 Clindamycin HCl (Cleocin) 300 mg Q6 PO Last administered on 04/10/17t 06:19; Admin Dose 300 MG; Start 04/09/17 at 12:00 PAVEL VALENTIN Apr 10, 2017 10:07
[2017-04-10 14:45] VITALS: BP 117/71; RESP 18
[2017-04-10 19:29] VITALS: BP 123/76; RESP 18
[2017-04-11 01:41] VITALS: BP 122/74; RESP 18
[2017-04-11] MEDS: CLINDAMYCIN 300 MG CAP PO SCH ×3 (06:04→17:36)
[2017-04-11 06:25] LABS: BASOPHILS % 0.6 % (0.0-2.0); EOSINOPHILS # 0.2 10^3/ul (0.0-0.5); EOSINOPHILS % 2.5 % (0.0-7.0); HEMATOCRIT 41.6 % (37.0-47.0); LYMPHOCYTES # 2.3 10^3/ul (0.8-2.9); LYMPHOCYTES % 31.9 % (15.0-51.0); MEAN CORPUSCULAR HEMOGLOBIN 27.4 pg (29.0-33.0); MEAN CORPUSCULAR HGB CONC 31.3 g/dl (32.0-37.0); MEAN CORPUSCULAR VOLUME 87.8 fl (82.0-101.0); MEAN PLATELET VOLUME 8.5 fl (7.4-10.4); MONOCYTE # 0.7 10^3/ul (0.3-0.9); MONOCYTES % 9.2 % (0.0-11.0); NEUTROPHILS % 55.4 % (39.0-77.0); PLATELET COUNT 420 10^3/UL (140-415); RED BLOOD COUNT 4.74 10^6/ul (4.20-5.40); RED CELL DISTRIBUTION WIDTH 12.2 % (11.5-14.5); WHITE BLOOD COUNT 7.2 10^3/ul (4.8-10.8)
[2017-04-11 06:52] LABS: ALBUMIN 3.9 g/dl (3.3-4.9); CALCIUM 9.4 mg/dl (8.4-10.2); CREATININE 0.87 mg/dl (0.44-1.00); MAGNESIUM 1.9 mg/dl (1.7-2.5); PHOSPHORUS 4.1 mg/dl (2.5-4.9); POTASSIUM 4.3 mmol/L (3.5-5.1)
[2017-04-11 07:54] VITALS: BP 124/50; RESP 16
[2017-04-11] MEDS: LACTOBACILLUS RHAMNOSUS CAP PO SCH ×2 (08:48→20:28)
[2017-04-11] MEDS: FAMOTIDINE 20 MG TAB PO SCH ×2 (08:48→20:28)
[2017-04-11 14:16] VITALS: BP 116/76; RESP 18
--- NOTE | 2017-04-11 15:14 | PN ---
Date/Time of Note Date/Time of Note DATE: 04/11/17 TIME: 15:14 Assessment/Plan VTE Prophylaxis VTE Prophylaxis Intervention: ambulation Lines/Catheters IV [facility]ter [facility]from [facility] Saline Lock Urinary Cath still in place: No Assessment/Plan Chief Complaint/Hosp Course Assessment/Plan 1. Cellulitis of left helix/pinna s/p I&D 04/07/17 and packing - ENT consult appreciated and packing removed yesterday 04/08/17 and sent for cultures - Given the fact patient failed 2 rounds of PO antibiotics, will await cultures in order to discharge on appropriate antibiotics. Currently on Clindamycin with no issues. 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 - She failed outpatient tx with Bactrim and cipro - Pain control - WBC normalized 2. +UA - asymptomatic - Will continue to monitor - No treatment indicated at this time 3. Leukocytosis secondary to #1 - resolved on IV antibiotics 4. Disposition - Await wound cultures in order to discharge on appropriate antibiotics given patient had 2 failed rounds of PO antibiotics prior to admission Problems: Subjective 24 Hr Interval Summary Free Text/Dictation no acute complaints Exam/Review of Systems Vital Signs Vitals Vital Signs Date Time Temp Pulse Resp B/P Pulse Ox O2 Delivery O2 Flow Rate FiO2 04/11/17 14:16 98.3 72 18 116/76 98 04/09/17 14:00 Room Air Intake and Output 04/10/17 04/10/17 04/11/17 14:59 22:59 06:59 Intake Total 2320 ml 300 ml Balance 2320 ml 300 ml Exam General: NAD, awake and alert HEENT: Pupils equally and reactive to light bilaterally. Swelling left ear improved, minimal discharge on dressing. mild tenderness with palpation Neck: Supple with full range of motion. Lungs: Clear to auscultation bilaterally no crackles rales or wheezing, Heart: Normal S1-S2, Regular rhythm and rate. No murmur, S3, or S4 Abdomen: Soft , nontender, nondistended , bowel sounds are present. No guarding no rebound tenderness , No masses or organomegaly. Extremities: Normal to inspection, no edema no cyanosis Neurologic: Normal mental status, speech normal, cranial nerves II through XII are intact, motor and sensory are intact, no focal weakness Results Result Diagram: 04/11/17 0534 04/11/17 0534 Results 24 hrs Laboratory Tests Test 04/11/17 05:34 White Blood Count 7.2 Red Blood Count 4.74 Hemoglobin 13.0 Hematocrit 41.6 Mean Corpuscular Volume 87.8 Mean Corpuscular Hemoglobin 27.4 L Mean Corpuscular Hemoglobin Concent 31.3 L Red Cell Distribution Width 12.2 Platelet Count 420 H Mean Platelet Volume 8.5 Neutrophils % 55.4 Lymphocytes % 31.9 Monocytes % 9.2 Eosinophils % 2.5 Basophils % 0.6 Nucleated Red Blood Cells % 0.0 Neutrophils # 4.0 Lymphocytes # 2.3 Monocytes # 0.7 Eosinophils # 0.2 Basophils # 0.0 Nucleated Red Blood Cells # 0.0 Sodium Level 140 Potassium Level 4.3 Chloride Level 102 Carbon Dioxide Level 30 Anion Gap 12 Blood Urea Nitrogen 16 Creatinine 0.87 Glucose Level 94 Calcium Level 9.4 Phosphorus Level 4.1 Magnesium Level 1.9 Albumin 3.9 Medications Medications Current Medications Ondansetron HCl (Zofran Inj) 4 mg Q6H PRN IV NAUSEA AND/OR VOMITING; Start 04/05/17 at 20:30 Acetaminophen (Tylenol Tab) 650 mg Q6H PRN PO PAIN LEVEL 1-3 OR FEVER Last administered on 04/09/17 11:21; Admin Dose 650 MG; Start 04/05/17 at 20:30 Docusate Sodium (Colace) 100 mg Q12H PRN PO CONSTIPATION; Start 04/05/17 at 20: 30 Bisacodyl (Dulcolax) 5 mg DAILY PRN PO CONSTIPATION; Start 04/05/17 at 20:30 Famotidine (Pepcid) 20 mg Q12 PO Last administered on 04/11/17 08:48; Admin Dose 20 MG; Start 04/05/17 at 21:00 Hydromorphone HCl (Dilaudid) 1 mg Q4H PRN IV PAIN Last administered on 09:11; Admin Dose 1 MG; Start 04/05/17 at 20:30 Lactobacillus Acidophilus/ Rhamnosus (Culturelle) 1 cap BID PO Last administered on 04/11/17 08:48; Admin Dose 1 CAP; Start 04/06/17 at 21:00 Clindamycin HCl (Cleocin) 300 mg Q6 PO Last administered on 04/11/17t 12:47; Admin Dose 300 MG; Start 04/09/17 at 12:00 PAVEL VALENTIN Apr 11, 2017 15:14
[2017-04-11 20:00] VITALS: BP 117/74; RESP 18
[2017-04-12] MEDS: CLINDAMYCIN 300 MG CAP PO SCH ×2 (00:11→05:31)
[2017-04-12 02:23] VITALS: BP 123/78; RESP 16
[2017-04-12 06:22] LABS: BASOPHILS % 0.6 % (0.0-2.0); EOSINOPHILS # 0.2 10^3/ul (0.0-0.5); EOSINOPHILS % 2.6 % (0.0-7.0); HEMATOCRIT 41.4 % (37.0-47.0); HEMOGLOBIN 13.4 g/dl (12.0-16.0); LYMPHOCYTES # 2.3 10^3/ul (0.8-2.9); MEAN CORPUSCULAR HEMOGLOBIN 28.7 pg (29.0-33.0); MEAN CORPUSCULAR HGB CONC 32.4 g/dl (32.0-37.0); MEAN CORPUSCULAR VOLUME 88.7 fl (82.0-101.0); MEAN PLATELET VOLUME 8.3 fl (7.4-10.4); MONOCYTE # 0.6 10^3/ul (0.3-0.9); MONOCYTES % 8.6 % (0.0-11.0); NEUTROPHIL # 3.7 10^3/ul (1.6-7.5); NEUTROPHILS % 54.8 % (39.0-77.0); PLATELET COUNT 436 10^3/UL (140-415); RED BLOOD COUNT 4.67 10^6/ul (4.20-5.40); RED CELL DISTRIBUTION WIDTH 12.1 % (11.5-14.5); WHITE BLOOD COUNT 6.8 10^3/ul (4.8-10.8)
[2017-04-12 07:06] LABS: ALBUMIN 4.2 g/dl (3.3-4.9); CALCIUM 9.4 mg/dl (8.4-10.2); CREATININE 0.84 mg/dl (0.44-1.00); PHOSPHORUS 4.2 mg/dl (2.5-4.9); POTASSIUM 4.4 mmol/L (3.5-5.1)
[2017-04-12 07:33] VITALS: BP 113/75; RESP 18
[2017-04-12] MEDS: FAMOTIDINE 20 MG TAB PO SCH (09:23)
[2017-04-12] MEDS: LACTOBACILLUS RHAMNOSUS CAP PO SCH (09:23)
--- NOTE | 2017-04-12 10:16 | PDOCDIS ---
Discharge Instructions CONDITION Patient Condition: Stable HOME CARE INSTRUCTIONS: Special Diet: Regular Diet ACTIVITY: Activity Restrictions: Slowly Increase Activity FOLLOW UP/APPOINTMENTS Follow-up Plan 1. Take all medications as directed 2. Follow up with primary care provider as soon as possible 3. Follow up with ENT doctor within 2-3 months for cyst removal. PAVEL VALENTIN Apr 12, 2017 10:16
[2017-04-12] MEDS ORDERED: CLIN-73 PO (10:21)
[2017-04-12] MEDS ORDERED: LACT1CAP28 PO (10:21)
--- NOTE | 2017-04-12 12:57 | DS ---
Date/Time of Note Date/Time of Note DATE: 04/12/17 TIME: 12:56 Discharge Summary Admission/Discharge Info Admit Date/Time Apr 05, 2017 at 20:24 Discharge Date/Time Apr 12, 2017 at 12:27 Hx of Present Illness Chief complaint: Left facial swelling rash This is a 36-year-old female who comes in today with left facial swelling and fever for approximately 2 days. Patient states that recently her swelling started out on the top portion of the outer ear where she had a previous " lesion the rash then subsequently." Spread and she has started noticing swelling and redness and warmth and pain. Patient states that it is slightly painful for her to chew secondary to the swelling on the left side of the face. She states that the pain is 8 out of 10 and it is a pulsating type of pain. She states that she did have a fever of approximately 100. She failed outpatient therapy with Bactrim/Cipro. Allergies: Penicillin Medications: None Hospital Course Patient is a 36-year-old female with a presentation of cellulitis of the left auricle who presented to [facility] after failing outpatient therapy of Bactrim and Cipro. Patient was seen by ENT and I&D of the cellulitis and abscess was done and patient was monitored on clindamycin. Patient had done well and cultures were taken of the wound, and patient awaited sensitivities. However no sensitivities were found on culture, however since patient did do well on clindamycin, patient will continue clindamycin for a total duration of antibiotics for cellulitis of 10-14 days total, including the days in the hospital. It was explained to the patient via hospital electrician ship explicitly that she needs to follow-up with her primary care provider and to follow-up with ENT within 2 months for cyst removal. Patient understands Discharge diagnoses Cellulitis of the left helix, pinna Asymptomatic bacteriuria Leukocytosis Ear pain Home Meds Active Scripts Lactobacillus Rhamnosus GG (Culturelle) 1 Each Capsule, 1 CAP PO BID for 30 Days , #60 CAP Prov:PAVEL VALENTIN 04/12/17 Clindamycin Hcl* (Clindamycin Hcl*) 300 Mg Capsule, 300 MG PO Q6 for 9 Days, # 36 CAP 0 Refills Prov:PAVEL VALENTIN 04/12/17 Discontinued Reported Medications Ferrous Sulfate* (Ferrous Sulfate*) 325 Mg Tabec, 325 MG PO DAILY, TAB 01/17/15 Vit #108/Iron/Fa ( ONE TABLET) 1 Each Tablet, 1 EACH PO AM 01/17/15 Discontinued Scripts Sulfamethoxazole/Trimethoprim* (Bactrim Ds* Tablet) 1 Each Tablet, 1 TAB PO BID , #14 TAB Prov:HORTENCIA URENA. [employer]PERATIONS SPECIALIST 04/04/17 Ciprofloxacin Hcl* (Ciprofloxacin Hcl*) 500 Mg Tablet, 500 MG PO BID for 10 Days , TAB Prov:HORTENCIA URENA. AD OPERATIONS SPECIALIST 04/04/17 Ibuprofen* (Motrin*) 600 Mg Tab, 600 MG PO Q6H Y for PAIN AND OR ELEVATED TEMP, #30 TAB Prov:HORTENCIA URENA. AD OPERATIONS SPECIALIST 04/04/17 Follow-up Plan 1. Take all medications as directed 2. Follow up with primary care provider as soon as possible 3. Follow up with ENT doctor within 2-3 months for cyst removal. Primary Care Provider Care Physician No Primary Time spent on discharge: > 30 minutes Pending Labs Laboratory Tests Test 04/12/17 05:35 White Blood Count 6.810^3/ul (4.8-10.8) Red Blood Count 4.6710^6/ul (4.20-5.40) Hemoglobin 13.4g/dl (12.0-16.0) Hematocrit 41.4% (37.0-47.0) Mean Corpuscular Volume 88.7fl (82.0-101.0) Mean Corpuscular Hemoglobin 28.7pg (29.0-33.0) Mean Corpuscular Hemoglobin Concent 32.4g/dl (32.0-37.0) Red Cell Distribution Width 12.1% (11.5-14.5) Platelet Count 29343^3/UL (140-415) Mean Platelet Volume 8.3fl (7.4-10.4) Neutrophils % 54.8% (39.0-77.0) Lymphocytes % 33.0% (15.0-51.0) Monocytes % 8.6% (0.0-11.0) Eosinophils % 2.6% (0.0-7.0) Basophils % 0.6% (0.0-2.0) Nucleated Red Blood Cells % 0.0/100WBC (0.0-0.0) Neutrophils # 3.710^3/ul (1.6-7.5) Lymphocytes # 2.310^3/ul (0.8-2.9) Monocytes # 0.610^3/ul (0.3-0.9) Eosinophils # 0.210^3/ul (0.0-0.5) Basophils # 0.010^3/ul (0.0-0.1) Nucleated Red Blood Cells # 0.010^3/ul (0.0-0.0) Sodium Level 140mmol/L (135-144) Potassium Level 4.4mmol/L (3.5-5.1) Chloride Level 102mmol/L (97-110) Carbon Dioxide Level 29mmol/L (21-31) Anion Gap 13 (8-16) Blood Urea Nitrogen 14mg/dl (7-20) Creatinine 0.84mg/dl (0.44-1.00) Glucose Level 93mg/dl (70-220) Calcium Level 9.4mg/dl (8.4-10.2) Phosphorus Level 4.2mg/dl (2.5-4.9) Magnesium Level 2.0mg/dl (1.7-2.5) Albumin 4.2g/dl (3.3-4.9) PAVEL VALENTIN Apr 12, 2017 12:57
== END 2017-04-12 12:27 | disposition home or self-care (01) | DRG 156 ==
LOC: FTE 12:29 → MS2 20:24
PROVIDERS: ADMIT Family Medicine; ATTEND Family Medicine
PROC: 099 Ear, Nose, Sinus, Drainage (ICD-10-PCS; principal; 2017-04-07)
DX: H60.12 Cellulitis of left external ear (principal); K11.5 Sialolithiasis; K08.89 Other specified disorders of teeth and supporting structures; R82.71 Bacteriuria; Z88.0 Allergy status to penicillin
CPT/HCPCS: 36415; 70491; 80053; 80061; 80069; 80202; 81001; 83036; 83690; 83735; 85025; 87040; 87070; 96365; 96366; 96367; 96375; 96376; J1170; J2270; J2405; J3370; J7030; J7050; Q9967